=== PATIENT | female | born 1985 | race Caucasian/White ===

== ENCOUNTER 2018-06-12 18:36 | Emergency (ER) | payer SELFPAY ==
[2018-06-12] MEDS ORDERED: MORPHINE 4 MG/ML SYR ONE (18:53)
[2018-06-12] MEDS ORDERED: ONDANSETRON 4 MG/2 ML VIAL ONE (18:53)
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
[2018-06-12 19:22] LABS: Urine Blood 3+ (NEG); Urine Glucose NEGATIVE (NEG); Urine Protein 2+ (NEG); Urine Specific Gravity >1.030 (1.005-1.030); Urine pH 5.5 (5.0-7.0)
[2018-06-12 19:35] LABS: Absolute Lymphocytes (CBC) 2.1 K/uL (0.7-4.9); Absolute Monocytes 0.7 K/uL (0.1-1.3); Absolute Neutrophil 3.9 K/uL (1.8-8.0); Eosinophils % 0.4 % (0-4.4); Hematocrit 40.8 % (36.0-45.0); Lymphocytes % 31.1 % (15.3-44.8); MCH 31.2 pg (27.0-35.0); MCV 92.6 fL (80-100); Monocytes % 10.9 % (3.3-12.3)
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
[2018-06-12] MEDS ORDERED: FENTANYL CITR 100 MCG/2 ML ONE (19:40)
[2018-06-12 19:48] LABS: Potassium 3.5 mmol/L (3.5-5.1)
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
[2018-06-12] MEDS ORDERED: NA CHLORIDE 0.9% 1,000 ML ONE (20:20)
== END 2018-06-12 20:27 | disposition short-term general hospital (02) ==
LOC: ER 18:36
DX: S22.41XA Multiple fractures of ribs, right side, initial encounter for closed fracture (principal); S32.89XA Fracture of other parts of pelvis, initial encounter for closed fracture; W55.89XA Other contact with other mammals, initial encounter; Y93.89 Activity, other specified; Y92.9 Unspecified place or not applicable; F17.210 Nicotine dependence, cigarettes, uncomplicated
CPT/HCPCS: 36415; 70450; 71045; 71260; 72125; 74177; 80048; 81003; 81025; 85025; 86850; 86900; 86901; 96374; 96375; 99285; J2405; J3010; J7030; Q9967